=== PATIENT | male | born 1980 | race Caucasian/White ===

== ENCOUNTER 2016-08-19 13:15 | Outpatient (CLI) | payer OTHER | END 2016-08-19 13:16 | disposition home or self-care (01) | LOC: SC 13:15 | PROVIDERS: ATTEND Specialist | DX: G47.8 Other sleep disorders (principal); R06.83 Snoring; G47.10 Hypersomnia, unspecified; G47.00 Insomnia, unspecified | CPT/HCPCS: 99205; 99212 ==

== ENCOUNTER 2016-09-15 19:26 | Outpatient (CLI) | payer OTHER | END 2016-09-15 19:27 | disposition home or self-care (01) | DX: G47.10 Hypersomnia, unspecified (principal); R06.83 Snoring ==

== ENCOUNTER 2016-10-22 10:30 | Outpatient (CLI) | payer OTHER | END 2016-10-22 10:31 | disposition home or self-care (01) | LOC: SC 10:30 | PROVIDERS: ATTEND Nurse Practitioner Family | DX: R06.83 Snoring (principal); G47.00 Insomnia, unspecified | CPT/HCPCS: 99212; 99214 ==